=== PATIENT | female | born 1960 | race Caucasian/White ===

== ENCOUNTER 2018-02-17 12:25 | Inpatient (IN) | payer OTHER ==
[2018-02-17 13:16] LABS: ADD MAN DIFF? NO
[2018-02-17] MEDS: SOD CHLORIDE 0.9% 1,000 ML IV (13:18)
[2018-02-17 13:21] LABS: WHITE BLOOD COUNT 13.4 10^3/ul (4.8-10.8)
[2018-02-17 13:21] LABS: BASOPHIL # 0.1 10^3/ul (0.0-0.1); BASOPHILS % 0.4 % (0.0-2.0); EOSINOPHILS # 0.1 10^3/ul (0.0-0.5); EOSINOPHILS % 0.4 % (0.0-7.0); HEMOGLOBIN 10.6 g/dl (12.0-16.0); LYMPHOCYTES % 7.2 % (15.0-51.0); MEAN CORPUSCULAR HEMOGLOBIN 32.2 pg (29.0-33.0); MEAN CORPUSCULAR HGB CONC 33.1 g/dl (32.0-37.0); MEAN CORPUSCULAR VOLUME 97.3 fl (82.0-101.0); MEAN PLATELET VOLUME 10.5 fl (7.4-10.4); MONOCYTE # 0.8 10^3/ul (0.3-0.9); MONOCYTES % 5.6 % (0.0-11.0); NEUTROPHIL # 11.3 10^3/ul (1.6-7.5); NEUTROPHILS % 84.2 % (39.0-77.0); PLATELET COUNT 529 10^3/UL (140-415); RED BLOOD COUNT 3.29 10^6/ul (4.20-5.40); RED CELL DISTRIBUTION WIDTH 17.5 % (11.5-14.5)
[2018-02-17 13:27] LABS: ADD UMIC YES; UR ASCORBIC ACID NEGATIVE (NEGATIVE); UR BACTERIA FEW /HPF (NONE SEEN); UR BILIRUBIN (Dip) 2+ mg/dL (NEGATIVE); UR BLOOD (Dip) 1+ mg/dL (NEGATIVE); UR CLARITY CLEAR (CLEAR); UR COLOR AMBER (YELLOW); UR GLUCOSE (Dip) NEGATIVE (NEGATIVE); UR KETONES (Dip) NEGATIVE (NEGATIVE); UR LEUKOCYTE ESTERASE (Dip) NEGATIVE Leu/ul (NEGATIVE); UR NITRITE (Dip) NEGATIVE (NEGATIVE); UR RBC 6 /HPF (0-5); UR SPECIFIC GRAVITY (Dip) 1.014 (1.003-1.030); UR SQUAMOUS EPITHELIAL CELL FEW /HPF (FEW); UR TOTAL PROTEIN (Dip) NEGATIVE (NEGATIVE); UR UROBILINOGEN (Dip) 2+ mg/dL (NEGATIVE); UR WBC 2 /HPF (0-5)
[2018-02-17 13:40] LABS: INR 1.21; PARTIAL THROMBOPLASTIN TIME 29.5 Sec (25.0-35.0); PROTIME 15.5 Sec (11.9-14.9); PT RATIO 1.2
[2018-02-17 13:44] LABS: ALANINE AMINOTRANSFERASE 47 IU/L (13-69); ALBUMIN 3.7 g/dl (3.3-4.9); ALBUMIN/GLOBULIN RATIO 0.82; ALKALINE PHOSPHATASE 320 IU/L (42-121); ANION GAP 15 (8-16); ASPARTATE AMINO TRANSFERASE 85 IU/L (15-46); BILIRUBIN,INDIRECT 3.1 mg/dl (0-1.1); BILIRUBIN,TOTAL 25.7 mg/dl (0.2-1.3); BLOOD UREA NITROGEN 17 mg/dl (7-20); CALCIUM 9.3 mg/dl (8.4-10.2); CARBON DIOXIDE 26 mmol/L (21-31); CHLORIDE 102 mmol/L (97-110); CREATININE 1.39 mg/dl (0.44-1.00); GLUCOSE 128 mg/dl (70-220); LIPASE 53 U/L (23-300); POTASSIUM 3.1 mmol/L (3.5-5.1); SODIUM 140 mmol/L (135-144); TOTAL PROTEIN 8.2 g/dl (6.1-8.1)
[2018-02-17] MEDS: IODIXANOL LOCM 100 ML BTL (14:26)
[2018-02-17] MEDS: SOD CHLORIDE 0.9% 100 ML (14:26)
[2018-02-17] MEDS ORDERED: SOD CHLORIDE 0.9% 1,000 ML IV ×2 (15:55→17:00)
[2018-02-17] MEDS ORDERED: ACETAMINOPHEN 325 MG TAB PO (16:00)
[2018-02-17] MEDS ORDERED: ONDANSETRON 4 MG INJ IV ×2 (16:00→16:30)
[2018-02-17] MEDS ORDERED: DEXTROSE 5%-0.45% NACL 1,000 ML IV (16:09)
[2018-02-17] MEDS ORDERED: BISACODYL (EC) 5 MG TAB PO (16:30)
[2018-02-17] MEDS ORDERED: NACL 0.9% 3 ML SYG IV (16:30)
[2018-02-17] MEDS: POTASSIUM CHLORIDE 100 ML IVPB ×3 (17:30→22:32)
[2018-02-17 17:42] LABS: IRON 42 ug/dl (35-150)
[2018-02-17 17:51] LABS: % IRON SATURATION 17 % SAT (22-52); TOTAL IRON BINDING CAPACITY 249 ug/dl (241-421)
[2018-02-17 21:12] LABS: CANCER ANTIGEN 19-9 > 10000.0 U/ml (0.0-37.0)
[2018-02-17] MEDS: DOCUSATE SODIUM 100 MG CAP PO (21:13)
[2018-02-17] MEDS: MAGNESIUM HYDROXIDE 30ML CUP PO (21:14)
[2018-02-17] MEDS: NS + KCL 20 MEQ 1,000 ML IV (21:24)
[2018-02-18] MEDS: DIPHENHYDRAMINE 50 MG INJ IV (00:24)
[2018-02-18] MEDS: POTASSIUM CHLORIDE 100 ML IVPB (01:26)
[2018-02-18] MEDS: DOCUSATE SODIUM 100 MG CAP PO ×2 (04:09→16:15)
[2018-02-18] MEDS: PANTOPRAZOLE 40 MG INJ IV (05:44)
[2018-02-18 08:17] LABS: ADD MAN DIFF? NO
[2018-02-18 08:21] LABS: BASOPHIL # 0.1 10^3/ul (0.0-0.1); BASOPHILS % 0.6 % (0.0-2.0); EOSINOPHILS # 0.2 10^3/ul (0.0-0.5); EOSINOPHILS % 1.7 % (0.0-7.0); HEMATOCRIT 26.7 % (37.0-47.0); HEMOGLOBIN 8.8 g/dl (12.0-16.0); LYMPHOCYTES # 1.1 10^3/ul (0.8-2.9); LYMPHOCYTES % 11.8 % (15.0-51.0); MEAN CORPUSCULAR HEMOGLOBIN 31.9 pg (29.0-33.0); MEAN CORPUSCULAR VOLUME 96.7 fl (82.0-101.0); MEAN PLATELET VOLUME 11.1 fl (7.4-10.4); MONOCYTE # 0.7 10^3/ul (0.3-0.9); MONOCYTES % 7.5 % (0.0-11.0); NEUTROPHIL # 6.9 10^3/ul (1.6-7.5); NEUTROPHILS % 76.6 % (39.0-77.0); PLATELET COUNT 333 10^3/UL (140-415); RED BLOOD COUNT 2.76 10^6/ul (4.20-5.40); RED CELL DISTRIBUTION WIDTH 17.6 % (11.5-14.5)
[2018-02-18 08:45] LABS: ALANINE AMINOTRANSFERASE 45 IU/L (13-69); ALBUMIN 2.8 g/dl (3.3-4.9); ALKALINE PHOSPHATASE 251 IU/L (42-121); ANION GAP 11 (8-16); ASPARTATE AMINO TRANSFERASE 66 IU/L (15-46); BILIRUBIN,INDIRECT 2.2 mg/dl (0-1.1); BILIRUBIN,TOTAL 19.5 mg/dl (0.2-1.3); BLOOD UREA NITROGEN 15 mg/dl (7-20); CALCIUM 8.3 mg/dl (8.4-10.2); CARBON DIOXIDE 22 mmol/L (21-31); CHLORIDE 109 mmol/L (97-110); GLUCOSE 89 mg/dl (70-220); MAGNESIUM 1.4 mg/dl (1.7-2.5); POTASSIUM 3.4 mmol/L (3.5-5.1); SODIUM 139 mmol/L (135-144); TOTAL PROTEIN 6.3 g/dl (6.1-8.1)
[2018-02-18] MEDS: MAGNESIUM HYDROXIDE 30ML CUP PO (09:01)
[2018-02-18] MEDS: MAGNESIUM OXIDE 400 MG TAB PO (10:13)
[2018-02-18] MEDS: POTASSIUM CHLORIDE (SR) 20 MEQ TAB PO (10:13)
[2018-02-18] MEDS: NS + KCL 20 MEQ 1,000 ML IV (12:33)
[2018-02-18] MEDS: INDOMETHACIN 50 MG SUPP PR (17:45)
[2018-02-19] MEDS: NS + KCL 20 MEQ 1,000 ML IV ×2 (03:25→20:00)
[2018-02-19] MEDS: DOCUSATE SODIUM 100 MG CAP PO ×2 (05:12→16:30)
[2018-02-19] MEDS: PANTOPRAZOLE 40 MG INJ IV (05:12)
[2018-02-19 05:49] LABS: ADD MAN DIFF? NO
[2018-02-19 05:56] LABS: WHITE BLOOD COUNT 7.6 10^3/ul (4.8-10.8)
[2018-02-19 05:56] LABS: BASOPHILS % 0.4 % (0.0-2.0); EOSINOPHILS # 0.2 10^3/ul (0.0-0.5); HEMATOCRIT 23.3 % (37.0-47.0); HEMOGLOBIN 7.7 g/dl (12.0-16.0); LYMPHOCYTES # 0.7 10^3/ul (0.8-2.9); LYMPHOCYTES % 8.5 % (15.0-51.0); MEAN CORPUSCULAR HEMOGLOBIN 32.2 pg (29.0-33.0); MEAN CORPUSCULAR VOLUME 97.5 fl (82.0-101.0); MEAN PLATELET VOLUME 10.9 fl (7.4-10.4); MONOCYTE # 0.6 10^3/ul (0.3-0.9); MONOCYTES % 7.7 % (0.0-11.0); NEUTROPHIL # 6.1 10^3/ul (1.6-7.5); NEUTROPHILS % 79.6 % (39.0-77.0); PLATELET COUNT 285 10^3/UL (140-415); RED BLOOD COUNT 2.39 10^6/ul (4.20-5.40); RED CELL DISTRIBUTION WIDTH 17.1 % (11.5-14.5)
[2018-02-19 06:37] LABS: ALANINE AMINOTRANSFERASE 44 IU/L (13-69); ALBUMIN 2.4 g/dl (3.3-4.9); ALBUMIN/GLOBULIN RATIO 0.77; ALKALINE PHOSPHATASE 205 IU/L (42-121); ANION GAP 11 (8-16); ASPARTATE AMINO TRANSFERASE 61 IU/L (15-46); BILIRUBIN,TOTAL 18.1 mg/dl (0.2-1.3); BLOOD UREA NITROGEN 12 mg/dl (7-20); CARBON DIOXIDE 22 mmol/L (21-31); CHLORIDE 111 mmol/L (97-110); CREATININE 1.22 mg/dl (0.44-1.00); GLUCOSE 121 mg/dl (70-220); MAGNESIUM 1.3 mg/dl (1.7-2.5); SODIUM 140 mmol/L (135-144); TOTAL PROTEIN 5.5 g/dl (6.1-8.1)
[2018-02-19] MEDS ORDERED: EPHEDrine SULFATE 50 MG/5 ML SYG (07:00)
[2018-02-19] MEDS: MAGNESIUM HYDROXIDE 30ML CUP PO (08:32)
[2018-02-19] MEDS: PSYLLIUM 28% PACKET PO (08:34)
[2018-02-19] MEDS: MAGNESIUM SULFATE 4 GM/100 ML 100 ML IVPB (10:10)
[2018-02-19] MEDS ORDERED: ROCURONIUM 50 MG INJ (16:20)
[2018-02-19] MEDS ORDERED: MIDAZOLAM 1 MG/ML 2 ML INJ (16:20)
[2018-02-19] MEDS ORDERED: CEFAZOLIN 1 GM INJ (16:20)
[2018-02-19] MEDS ORDERED: PROPOFOL 20 ML (16:20)
[2018-02-19] MEDS ORDERED: FENTAnyl 50 MCG/ML VIAL (16:20)
[2018-02-19] MEDS ORDERED: IOHEXOL 300MG/ML 30 ML BTL (16:39)
[2018-02-19] MEDS ORDERED: DIPHENHYDRAMINE 50 MG INJ IV (17:00)
[2018-02-19] MEDS ORDERED: EPHEDrine SULFATE 50 MG/5 ML SYG IV (17:00)
[2018-02-19] MEDS ORDERED: MEPERIDINE 25 MG INJ IV (17:00)
[2018-02-19] MEDS ORDERED: FENTAnyl 50 MCG/ML VIAL IV ×3 (17:00)
[2018-02-19] MEDS ORDERED: ONDANSETRON 4 MG INJ IV (17:00)
[2018-02-19] MEDS ORDERED: HYDROmorphONE 1 MG/5 ML IV SYRINGE IV ×3 (17:00)
[2018-02-19] MEDS ORDERED: METOCLOPRAMIDE 10 MG INJ IV (17:00)
[2018-02-19] MEDS: INDOMETHACIN 50 MG SUPP PR (17:45)
[2018-02-19] MEDS ORDERED: ONDANSETRON 4 MG INJ (17:54)
[2018-02-19] MEDS ORDERED: DEXAMETHASONE 4 MG/ML 1 ML INJ (17:54)
[2018-02-19] MEDS ORDERED: METOCLOPRAMIDE 10 MG INJ (17:54)
[2018-02-19] MEDS ORDERED: SUGAMMADEX SODIUM 200 MG/2 ML VIAL IV (18:08)
[2018-02-20] MEDS: NS + KCL 20 MEQ 1,000 ML IV ×2 (02:45→21:45)
[2018-02-20] MEDS: PANTOPRAZOLE 40 MG INJ IV (05:12)
[2018-02-20] MEDS: DOCUSATE SODIUM 100 MG CAP PO ×2 (05:14→16:30)
[2018-02-20 06:10] LABS: ADD MAN DIFF? NO
[2018-02-20 06:15] LABS: WHITE BLOOD COUNT 12.1 10^3/ul (4.8-10.8)
[2018-02-20 06:15] LABS: BASOPHILS % 0.1 % (0.0-2.0); HEMATOCRIT 31.2 % (37.0-47.0); HEMOGLOBIN 9.9 g/dl (12.0-16.0); LYMPHOCYTES # 0.7 10^3/ul (0.8-2.9); LYMPHOCYTES % 5.9 % (15.0-51.0); MEAN CORPUSCULAR HEMOGLOBIN 31.9 pg (29.0-33.0); MEAN CORPUSCULAR HGB CONC 31.7 g/dl (32.0-37.0); MEAN CORPUSCULAR VOLUME 100.6 fl (82.0-101.0); MEAN PLATELET VOLUME 10.8 fl (7.4-10.4); MONOCYTE # 0.2 10^3/ul (0.3-0.9); MONOCYTES % 1.7 % (0.0-11.0); NEUTROPHILS % 90.4 % (39.0-77.0); PLATELET COUNT 412 10^3/UL (140-415)
[2018-02-20 06:43] LABS: ALANINE AMINOTRANSFERASE 43 IU/L (13-69); ALBUMIN 3.1 g/dl (3.3-4.9); ALBUMIN/GLOBULIN RATIO 0.73; ALKALINE PHOSPHATASE 317 IU/L (42-121); ANION GAP 15 (8-16); ASPARTATE AMINO TRANSFERASE 61 IU/L (15-46); BILIRUBIN,INDIRECT 2.4 mg/dl (0-1.1); BILIRUBIN,TOTAL 17.4 mg/dl (0.2-1.3); BLOOD UREA NITROGEN 11 mg/dl (7-20); CALCIUM 8.7 mg/dl (8.4-10.2); CARBON DIOXIDE 21 mmol/L (21-31); CHLORIDE 107 mmol/L (97-110); CREATININE 1.15 mg/dl (0.44-1.00); GLUCOSE 138 mg/dl (70-220); MAGNESIUM 2.4 mg/dl (1.7-2.5); POTASSIUM 3.9 mmol/L (3.5-5.1); SODIUM 139 mmol/L (135-144); TOTAL PROTEIN 7.3 g/dl (6.1-8.1)
[2018-02-20] MEDS: PSYLLIUM 28% PACKET PO (08:26)
[2018-02-20] MEDS: MAGNESIUM HYDROXIDE 30ML CUP PO (08:28)
[2018-02-20] MEDS: DIPHENHYDRAMINE 50 MG INJ IV (21:46)
[2018-02-21] MEDS: DOCUSATE SODIUM 100 MG CAP PO ×2 (02:27→16:12)
[2018-02-21] MEDS: PANTOPRAZOLE 40 MG INJ IV (05:31)
[2018-02-21 06:14] LABS: ADD MAN DIFF? NO
[2018-02-21 06:26] LABS: BASOPHILS % 0.2 % (0.0-2.0); EOSINOPHILS # 0.1 10^3/ul (0.0-0.5); EOSINOPHILS % 1.2 % (0.0-7.0); HEMATOCRIT 22.2 % (37.0-47.0); HEMOGLOBIN 7.3 g/dl (12.0-16.0); LYMPHOCYTES # 1.5 10^3/ul (0.8-2.9); LYMPHOCYTES % 16.4 % (15.0-51.0); MEAN CORPUSCULAR HEMOGLOBIN 33.5 pg (29.0-33.0); MEAN CORPUSCULAR HGB CONC 32.9 g/dl (32.0-37.0); MEAN CORPUSCULAR VOLUME 101.8 fl (82.0-101.0); MEAN PLATELET VOLUME 10.8 fl (7.4-10.4); MONOCYTE # 0.4 10^3/ul (0.3-0.9); MONOCYTES % 4.9 % (0.0-11.0); NEUTROPHIL # 6.9 10^3/ul (1.6-7.5); NEUTROPHILS % 76.2 % (39.0-77.0); PLATELET COUNT 316 10^3/UL (140-415); RED BLOOD COUNT 2.18 10^6/ul (4.20-5.40); RED CELL DISTRIBUTION WIDTH 16.8 % (11.5-14.5)
[2018-02-21 06:26] LABS: WHITE BLOOD COUNT 9.1 10^3/ul (4.8-10.8)
[2018-02-21 06:46] LABS: ALANINE AMINOTRANSFERASE 32 IU/L (13-69); ALBUMIN 2.3 g/dl (3.3-4.9); ALBUMIN/GLOBULIN RATIO 0.74; ALKALINE PHOSPHATASE 199 IU/L (42-121); ANION GAP 10 (8-16); ASPARTATE AMINO TRANSFERASE 32 IU/L (15-46); BILIRUBIN,INDIRECT 1.9 mg/dl (0-1.1); BILIRUBIN,TOTAL 4.9 mg/dl (0.2-1.3); BLOOD UREA NITROGEN 14 mg/dl (7-20); CALCIUM 8.1 mg/dl (8.4-10.2); CARBON DIOXIDE 23 mmol/L (21-31); CHLORIDE 112 mmol/L (97-110); GLUCOSE 91 mg/dl (70-220); POTASSIUM 4.1 mmol/L (3.5-5.1); SODIUM 141 mmol/L (135-144); TOTAL PROTEIN 5.4 g/dl (6.1-8.1)
[2018-02-21] MEDS: MAGNESIUM HYDROXIDE 30ML CUP PO (09:00)
[2018-02-21] MEDS: PSYLLIUM 28% PACKET PO (09:00)
[2018-02-21] MEDS: TAMSULOSIN (SR) 0.4 MG CAP PO ×2 (10:15→21:17)
[2018-02-21 10:50] LABS: RETICULOCYTE RBC 2.16
[2018-02-21 10:50] LABS: RETICULOCYTE COUNT % 3.3 % (0.5-1.5)
[2018-02-21 10:52] LABS: IRON 65 ug/dl (35-150)
[2018-02-21 11:02] LABS: % IRON SATURATION 33 % SAT (22-52); TOTAL IRON BINDING CAPACITY 198 ug/dl (241-421)
[2018-02-21] MEDS: NS + KCL 20 MEQ 1,000 ML IV (15:45)
[2018-02-21 22:46] LABS: OCCULT BLOOD STOOL NEGATIVE (NEGATIVE)
[2018-02-22] MEDS: DOCUSATE SODIUM 100 MG CAP PO ×2 (01:33→16:30)
[2018-02-22 05:16] LABS: ADD MAN DIFF? NO
[2018-02-22 05:20] LABS: BASOPHILS % 0.3 % (0.0-2.0); EOSINOPHILS # 0.1 10^3/ul (0.0-0.5); EOSINOPHILS % 1.3 % (0.0-7.0); HEMATOCRIT 24.8 % (37.0-47.0); HEMOGLOBIN 7.8 g/dl (12.0-16.0); LYMPHOCYTES # 1.1 10^3/ul (0.8-2.9); LYMPHOCYTES % 14.7 % (15.0-51.0); MEAN CORPUSCULAR HEMOGLOBIN 32.6 pg (29.0-33.0); MEAN CORPUSCULAR HGB CONC 31.5 g/dl (32.0-37.0); MEAN CORPUSCULAR VOLUME 103.8 fl (82.0-101.0); MEAN PLATELET VOLUME 10.1 fl (7.4-10.4); MONOCYTE # 0.4 10^3/ul (0.3-0.9); MONOCYTES % 4.9 % (0.0-11.0); NEUTROPHIL # 5.9 10^3/ul (1.6-7.5); NEUTROPHILS % 77.2 % (39.0-77.0); PLATELET COUNT 305 10^3/UL (140-415); RED BLOOD COUNT 2.39 10^6/ul (4.20-5.40)
[2018-02-22 05:20] LABS: WHITE BLOOD COUNT 7.7 10^3/ul (4.8-10.8)
[2018-02-22 05:48] LABS: ALANINE AMINOTRANSFERASE 27 IU/L (13-69); ALBUMIN 2.7 g/dl (3.3-4.9); ALBUMIN/GLOBULIN RATIO 0.87; ALKALINE PHOSPHATASE 193 IU/L (42-121); ANION GAP 11 (8-16); ASPARTATE AMINO TRANSFERASE 34 IU/L (15-46); BILIRUBIN,INDIRECT 1.9 mg/dl (0-1.1); BILIRUBIN,TOTAL 4.1 mg/dl (0.2-1.3); BLOOD UREA NITROGEN 10 mg/dl (7-20); CALCIUM 8.2 mg/dl (8.4-10.2); CARBON DIOXIDE 23 mmol/L (21-31); CHLORIDE 112 mmol/L (97-110); CREATININE 1.08 mg/dl (0.44-1.00); GLUCOSE 103 mg/dl (70-220); MAGNESIUM 1.5 mg/dl (1.7-2.5); POTASSIUM 4.1 mmol/L (3.5-5.1); SODIUM 142 mmol/L (135-144); TOTAL PROTEIN 5.8 g/dl (6.1-8.1)
[2018-02-22] MEDS: PANTOPRAZOLE 40 MG INJ IV (05:57)
[2018-02-22] MEDS: TAMSULOSIN (SR) 0.4 MG CAP PO (08:33)
[2018-02-22] MEDS: NS + KCL 20 MEQ 1,000 ML IV (08:33)
[2018-02-22] MEDS: MAGNESIUM HYDROXIDE 30ML CUP PO (08:40)
[2018-02-22] MEDS: PSYLLIUM 28% PACKET PO (08:40)
[2018-02-22] MEDS: MAGNESIUM SULFATE 4 GM/100 ML 100 ML IVPB (10:21)
[2018-02-23] MEDS: DOCUSATE SODIUM 100 MG CAP PO ×2 (04:30→16:30)
[2018-02-23] MEDS: PANTOPRAZOLE 40 MG INJ IV (05:21)
[2018-02-23 06:04] LABS: ADD MAN DIFF? NO
[2018-02-23 06:12] LABS: WHITE BLOOD COUNT 10.4 10^3/ul (4.8-10.8)
[2018-02-23 06:12] LABS: BASOPHILS % 0.2 % (0.0-2.0); EOSINOPHILS # 0.2 10^3/ul (0.0-0.5); EOSINOPHILS % 2.1 % (0.0-7.0); HEMATOCRIT 24.2 % (37.0-47.0); HEMOGLOBIN 7.6 g/dl (12.0-16.0); LYMPHOCYTES # 1.2 10^3/ul (0.8-2.9); MEAN CORPUSCULAR HEMOGLOBIN 33.2 pg (29.0-33.0); MEAN CORPUSCULAR HGB CONC 31.4 g/dl (32.0-37.0); MEAN CORPUSCULAR VOLUME 105.7 fl (82.0-101.0); MEAN PLATELET VOLUME 10.7 fl (7.4-10.4); MONOCYTE # 0.6 10^3/ul (0.3-0.9); MONOCYTES % 5.7 % (0.0-11.0); NEUTROPHIL # 8.2 10^3/ul (1.6-7.5); NEUTROPHILS % 78.8 % (39.0-77.0); PLATELET COUNT 351 10^3/UL (140-415); RED BLOOD COUNT 2.29 10^6/ul (4.20-5.40); RED CELL DISTRIBUTION WIDTH 14.6 % (11.5-14.5)
[2018-02-23 06:38] LABS: ALANINE AMINOTRANSFERASE 34 IU/L (13-69); ALBUMIN 2.5 g/dl (3.3-4.9); ALBUMIN/GLOBULIN RATIO 0.75; ALKALINE PHOSPHATASE 186 IU/L (42-121); ANION GAP 12 (8-16); ASPARTATE AMINO TRANSFERASE 39 IU/L (15-46); BILIRUBIN,INDIRECT 1.7 mg/dl (0-1.1); BILIRUBIN,TOTAL 3.6 mg/dl (0.2-1.3); BLOOD UREA NITROGEN 8 mg/dl (7-20); CALCIUM 8.5 mg/dl (8.4-10.2); CARBON DIOXIDE 27 mmol/L (21-31); CHLORIDE 105 mmol/L (97-110); CREATININE 1.15 mg/dl (0.44-1.00); GLUCOSE 94 mg/dl (70-220); MAGNESIUM 2.3 mg/dl (1.7-2.5); POTASSIUM 4.6 mmol/L (3.5-5.1); SODIUM 139 mmol/L (135-144); TOTAL PROTEIN 5.8 g/dl (6.1-8.1)
[2018-02-23] MEDS: MAGNESIUM HYDROXIDE 30ML CUP PO (08:31)
[2018-02-23] MEDS: PSYLLIUM 28% PACKET PO (08:31)
[2018-02-23] MEDS: SOD CHLORIDE 0.9% 1,000 ML IV (16:53)
[2018-02-23] MEDS: SOD CHLORIDE 0.9% 100 ML (17:50)
[2018-02-23] MEDS: IOHEXOL 300MG/ML 150 ML BTL (17:50)
[2018-02-24] MEDS: DOCUSATE SODIUM 100 MG CAP PO ×2 (04:30→16:26)
[2018-02-24] MEDS: PANTOPRAZOLE 40 MG INJ IV (05:24)
[2018-02-24 06:05] LABS: ADD MAN DIFF? NO
[2018-02-24 06:16] LABS: BASOPHILS % 0.3 % (0.0-2.0); EOSINOPHILS # 0.3 10^3/ul (0.0-0.5); EOSINOPHILS % 2.8 % (0.0-7.0); HEMATOCRIT 26.3 % (37.0-47.0); HEMOGLOBIN 8.2 g/dl (12.0-16.0); LYMPHOCYTES # 1.4 10^3/ul (0.8-2.9); LYMPHOCYTES % 12.9 % (15.0-51.0); MEAN CORPUSCULAR HEMOGLOBIN 32.4 pg (29.0-33.0); MEAN CORPUSCULAR HGB CONC 31.2 g/dl (32.0-37.0); MEAN PLATELET VOLUME 10.4 fl (7.4-10.4); MONOCYTE # 0.8 10^3/ul (0.3-0.9); MONOCYTES % 6.7 % (0.0-11.0); NEUTROPHIL # 8.5 10^3/ul (1.6-7.5); PLATELET COUNT 394 10^3/UL (140-415); RED BLOOD COUNT 2.53 10^6/ul (4.20-5.40); RED CELL DISTRIBUTION WIDTH 14.7 % (11.5-14.5)
[2018-02-24 06:16] LABS: WHITE BLOOD COUNT 11.1 10^3/ul (4.8-10.8)
[2018-02-24 07:29] LABS: ALANINE AMINOTRANSFERASE 34 IU/L (13-69); ALBUMIN 2.6 g/dl (3.3-4.9); ALBUMIN/GLOBULIN RATIO 0.76; ALKALINE PHOSPHATASE 183 IU/L (42-121); ANION GAP 14 (8-16); ASPARTATE AMINO TRANSFERASE 42 IU/L (15-46); BILIRUBIN,INDIRECT 1.6 mg/dl (0-1.1); BILIRUBIN,TOTAL 3.2 mg/dl (0.2-1.3); BLOOD UREA NITROGEN 8 mg/dl (7-20); CALCIUM 8.5 mg/dl (8.4-10.2); CARBON DIOXIDE 25 mmol/L (21-31); CHLORIDE 104 mmol/L (97-110); GLUCOSE 89 mg/dl (70-220); MAGNESIUM 1.6 mg/dl (1.7-2.5); POTASSIUM 3.7 mmol/L (3.5-5.1); SODIUM 139 mmol/L (135-144)
[2018-02-24] MEDS: PSYLLIUM 28% PACKET PO (08:33)
[2018-02-24] MEDS: MAGNESIUM HYDROXIDE 30ML CUP PO (08:33)
[2018-02-24] MEDS: MAGNESIUM OXIDE 400 MG TAB PO (11:50)
[2018-02-24] MEDS: SOD CHLORIDE 0.9% 1,000 ML IV (11:51)
[2018-02-25] MEDS: DOCUSATE SODIUM 100 MG CAP PO ×2 (04:30→14:59)
[2018-02-25] MEDS: PANTOPRAZOLE 40 MG INJ IV (05:59)
[2018-02-25 06:31] LABS: ADD MAN DIFF? NO
[2018-02-25 06:37] LABS: BASOPHILS % 0.2 % (0.0-2.0); EOSINOPHILS # 0.3 10^3/ul (0.0-0.5); EOSINOPHILS % 3.3 % (0.0-7.0); HEMOGLOBIN 7.9 g/dl (12.0-16.0); LYMPHOCYTES # 1.4 10^3/ul (0.8-2.9); LYMPHOCYTES % 15.8 % (15.0-51.0); MEAN CORPUSCULAR HEMOGLOBIN 33.8 pg (29.0-33.0); MEAN CORPUSCULAR HGB CONC 32.9 g/dl (32.0-37.0); MEAN CORPUSCULAR VOLUME 102.6 fl (82.0-101.0); MEAN PLATELET VOLUME 10.4 fl (7.4-10.4); MONOCYTE # 0.6 10^3/ul (0.3-0.9); MONOCYTES % 6.4 % (0.0-11.0); NEUTROPHIL # 6.4 10^3/ul (1.6-7.5); NEUTROPHILS % 73.4 % (39.0-77.0); PLATELET COUNT 346 10^3/UL (140-415); RED BLOOD COUNT 2.34 10^6/ul (4.20-5.40); RED CELL DISTRIBUTION WIDTH 14.6 % (11.5-14.5)
[2018-02-25 06:37] LABS: WHITE BLOOD COUNT 8.7 10^3/ul (4.8-10.8)
[2018-02-25 07:11] LABS: ALANINE AMINOTRANSFERASE 37 IU/L (13-69); ALBUMIN 2.5 g/dl (3.3-4.9); ALBUMIN/GLOBULIN RATIO 0.78; ALKALINE PHOSPHATASE 167 IU/L (42-121); ANION GAP 11 (8-16); ASPARTATE AMINO TRANSFERASE 39 IU/L (15-46); BILIRUBIN,INDIRECT 1.6 mg/dl (0-1.1); BILIRUBIN,TOTAL 3.1 mg/dl (0.2-1.3); BLOOD UREA NITROGEN 6 mg/dl (7-20); CALCIUM 8.6 mg/dl (8.4-10.2); CARBON DIOXIDE 28 mmol/L (21-31); CHLORIDE 105 mmol/L (97-110); CREATININE 1.06 mg/dl (0.44-1.00); GLUCOSE 88 mg/dl (70-220); POTASSIUM 3.6 mmol/L (3.5-5.1); SODIUM 140 mmol/L (135-144); TOTAL PROTEIN 5.7 g/dl (6.1-8.1)
[2018-02-25 07:12] LABS: MAGNESIUM 1.5 mg/dl (1.7-2.5)
[2018-02-25] MEDS: MAGNESIUM HYDROXIDE 30ML CUP PO (09:00)
[2018-02-25] MEDS: PSYLLIUM 28% PACKET PO (09:00)
[2018-02-25] MEDS: SOD CHLORIDE 0.9% 500 ML (11:03)
[2018-02-25] MEDS: MIDAZOLAM 1 MG/ML 2 ML INJ (12:10)
[2018-02-25] MEDS: HEPARIN 1000 UNITS/ML 10 ML INJ (12:12)
[2018-02-25] MEDS: CEFAZOLIN 1 GM/50 ML (PMX) 50 ML IVPB (12:12)
[2018-02-25] MEDS: FENTAnyl 50 MCG/ML VIAL (12:12)
[2018-02-25] MEDS: LIDOCAINE 1%/EPI 30 ML INJ (12:15)
[2018-02-25] MEDS: POLYMYXIN/BACITRACIN 1L IRRIG IRR (12:20)
[2018-02-25] MEDS: MAGNESIUM SULFATE 2 GM/50 ML 50 ML IVPB (14:59)
[2018-02-25] MEDS: ACETAMINOPHEN 325 MG TAB PO ×2 (17:07→23:08)
[2018-02-26] MEDS: DOCUSATE SODIUM 100 MG CAP PO (03:44)
[2018-02-26] MEDS: PANTOPRAZOLE 40 MG INJ IV (05:35)
[2018-02-26 08:43] LABS: ADD MAN DIFF? NO
[2018-02-26 08:50] LABS: WHITE BLOOD COUNT 9.6 10^3/ul (4.8-10.8)
[2018-02-26 08:50] LABS: BASOPHILS % 0.3 % (0.0-2.0); EOSINOPHILS # 0.2 10^3/ul (0.0-0.5); EOSINOPHILS % 2.4 % (0.0-7.0); HEMATOCRIT 28.3 % (37.0-47.0); HEMOGLOBIN 9.1 g/dl (12.0-16.0); LYMPHOCYTES # 1.5 10^3/ul (0.8-2.9); LYMPHOCYTES % 15.5 % (15.0-51.0); MEAN CORPUSCULAR HEMOGLOBIN 33.2 pg (29.0-33.0); MEAN CORPUSCULAR HGB CONC 32.2 g/dl (32.0-37.0); MEAN CORPUSCULAR VOLUME 103.3 fl (82.0-101.0); MEAN PLATELET VOLUME 10.1 fl (7.4-10.4); MONOCYTE # 0.7 10^3/ul (0.3-0.9); MONOCYTES % 7.4 % (0.0-11.0); NEUTROPHIL # 7.1 10^3/ul (1.6-7.5); NEUTROPHILS % 73.8 % (39.0-77.0); PLATELET COUNT 437 10^3/UL (140-415); RED BLOOD COUNT 2.74 10^6/ul (4.20-5.40); RED CELL DISTRIBUTION WIDTH 14.9 % (11.5-14.5)
[2018-02-26] MEDS: MAGNESIUM HYDROXIDE 30ML CUP PO (09:00)
[2018-02-26] MEDS: PSYLLIUM 28% PACKET PO (09:00)
[2018-02-26 09:15] LABS: ANION GAP 11 (8-16); BLOOD UREA NITROGEN 9 mg/dl (7-20); CALCIUM 8.7 mg/dl (8.4-10.2); CARBON DIOXIDE 27 mmol/L (21-31); CHLORIDE 106 mmol/L (97-110); CREATININE 1.14 mg/dl (0.44-1.00); GLUCOSE 85 mg/dl (70-220); MAGNESIUM 2.1 mg/dl (1.7-2.5); PHOSPHORUS 3.8 mg/dl (2.5-4.9); POTASSIUM 4.5 mmol/L (3.5-5.1); SODIUM 139 mmol/L (135-144)
== END 2018-02-26 14:00 | disposition home or self-care (01) | DRG 435 ==
LOC: E/R 12:25 → PP2 15:56
PROC: 0FBC8ZX Excision of Ampulla of Vater, Via Natural or Artificial Opening Endoscopic, Diagnostic (ICD-10-PCS; principal; 2018-02-19 17:26)
PROC: 0FB98ZX Excision of Common Bile Duct, Via Natural or Artificial Opening Endoscopic, Diagnostic (ICD-10-PCS; 2018-02-19 17:26)
PROC: 0F798DZ Dilation of Common Bile Duct with Intraluminal Device, Via Natural or Artificial Opening Endoscopic (ICD-10-PCS; 2018-02-19 17:26)
PROC: 0JH60WZ Insertion of Totally Implantable Vascular Access Device into Chest Subcutaneous Tissue and Fascia, Open Approach (ICD-10-PCS; 2018-02-19 17:26)
PROC: 02H633Z Insertion of Infusion Device into Right Atrium, Percutaneous Approach (ICD-10-PCS; 2018-02-19 17:26)
DX: C25.0 Malignant neoplasm of head of pancreas (principal); K83.1 Obstruction of bile duct; N17.9 Acute kidney failure, unspecified; C78.89 Secondary malignant neoplasm of other digestive organs; N20.0 Calculus of kidney; K83.8 Other specified diseases of biliary tract; D64.9 Anemia, unspecified; E87.6 Hypokalemia
CPT/HCPCS: 36415; 36561; 71045; 71260; 74018; 74177; 74181; 74330; 76705; 76942; 80048; 80053; 81001; 82270; 82378; 82728; 83540; 83690; 83735; 84100; 85025; 85045; 85610; 85730; 86301; 88305; 88313; 96360; 96361; 97161; 99285-25